=== PATIENT | female | born 1960 | race Caucasian/White ===

== ENCOUNTER → 2018-09-12 | Outpatient (CLI) | payer BC ==
--- NOTE | 2018-09-12 14:53 | PCVCIMAG ---
APPROVED REPORT Study performed: 09/12/2018 13:10:55 Exam: Stress Echocardiogram Indication: Palpitations,near syncope,syncope Patient Location: Echo lab Stress Nurse: Yanira Altamirano RN Room #: 2 Status: routine Ht: 5 ft 10 in HR: 53 bpm BP: 120/74 mmHg Rhythm: Sinus Bradycardia Medical History Medical History: No history of CAD,syncope, palpitations Medications: Bystolic Cardiac Risk Factors: Hyperlipidemia Previous Cardiac Procedures: none Exercise History: Physically active Procedure The patient underwent an Exercise Stress Test using the Sophia Protocol. Blood pressure, heart rate, and EKG were monitored. An Echocardiogram was performed by lab support technician in four stages in quad fashion. At peak stress, four selected images were obtained and placed side by side with resting images for comparison. Stress Test Details Stress Test: Exercise stress testing was performed using a Sophia protocol. HR Resting HR: 53 bpmMax Heart Rate (APMHR): 163 bpm Max HR Achieved: 137 bpmTarget HR (85% APMHR): 138 bpm % of APMHR: 84 Recovery HR: 74 bpm HR response to stress: Normal HR response to stress BP Resting BP: 120/74 mmHg Max BP: 156/74 mmHg Recovery BP: 140/74 mmHg BP response to stress: Normal blood pressure response to stress. ECG Resting ECG: Sinus Bradycardia Stress ECG: Sinus Rhythm ST Change: Non-ischemic Arrhythmia: None Recovery ECG: Sinus Rhythm Recovery ST Change: Non-ischemic Recovery Arrhythmia: None Clinical Reason for Termination: Maximal effort Stress Symptoms: none Exercise duration: 12 min 24 sec Highest Stage Achieved: Stage 5: 5.0 mph at 18% grade. Exercise capacity: 14.8 METs Overall Exercise Capacity for Age: Excellent Scale: Active Angina Score: None No complications. Stress ECG Conclusion The patient exercised according to the SOPHIA protocol for 12:24 mins; achieving a work level of 14.8 METS. The resting heart rate of 53 bpm yusuf to a maximum heart rate of 137 bpm. This value represent 84% of the maximal, age-predicted heart rate. The resting blood pressure of 120/74 mmHg, yusuf to a maximum blood pressure of 156/74 mmHg. The exercise test was stopped due tofatigue. Pre-Stress Echo The resting Echocardiogram showed normal left ventricular contractility with an estimated Ejection Fraction of about 55-60%. Normal wall motion in all segments on baseline images. Post-Stress Echo The stress Echocardiogram showed normal left ventricular contractility with an estimated Ejection Fraction of about 65-70%. Normal augmentation of wall motion in all segments on post stress images. Clinical No clinical or ECG evidence for ischemia. Conclusion Clinical Response: Non-ischemic Exercise Capacity: Superior Stress ECG Response: Non-ischemic Stress Echo Images: Non-ischemic No clinical, EKG or echocardiographic evidence for ischemia. No echocardiographic evidence for exercise induced ischemia. Normal stress echocardiogram with maximal exercise stress. <Conclusion> No clinical, EKG or echocardiographic evidence for ischemia. No echocardiographic evidence for exercise induced ischemia. Normal stress echocardiogram with maximal exercise stress.
== END | disposition home or self-care (01) ==
LOC: PCVCIMAG 13:41
PROVIDERS: ATTEND Internal Medicine Cardiovascular Disease
DX: R55 Syncope and collapse (principal); E78.5 Hyperlipidemia, unspecified; R00.2 Palpitations
CPT/HCPCS: 93325; 93351